=== PATIENT | male | born 1960 ===

== ENCOUNTER → 2022-06-13 | Outpatient (CLI) | payer SELFPAY ==
[2022-06-13 16:02] LABS: Bun/Creatinine Ratio 10.9 (12.0-20.0); Creatinine, Blood 1.01 mg/dL (0.60-1.20); Potassium, Blood 3.5 mmol/L (3.5-5.5)
== END | disposition home or self-care (01) ==
LOC: LAB SHORT 15:05
PROVIDERS: Physician Assistant
DX: U07.1 COVID-19 (principal)
CPT/HCPCS: 80048